=== PATIENT | female | born 1985 | race Caucasian/White ===

== ENCOUNTER 2019-03-15 19:23 | Emergency (ER) | payer BC, OTHER ==
[2019-03-15 19:44] VITALS: BP 112/70
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
--- NOTE | 2019-03-16 09:48 | UC ---
- Progress Note Progress Note: Final radiologist reading for x-rays from March 15, 2019 comes back with the left wrist is no fracture in the left elbow there is a joint effusion present. Provider interpretation of same date was the same and patient is being treated for an elbow fracture and following up with orthopedics therefore there is no discrepancy and no change in treatment at this time. Course/Dx - Diagnoses Provider Diagnoses: Left radial head fracture, Left wrist sprain Discharge - Sign-Out/Discharge Documenting (check all that apply): Patient Departure All imaging exams completed and their final reports reviewed: Yes - Discharge Plan Condition: Stable Disposition: HOME Patient Education Materials: Elbow Fracture (ED), Wrist Sprain (ED) Referrals: Joshua Irvin MD [Medical Doctor] - As Soon As Possible Additional Instructions: the offical xr reports are pending I suspect a left radial head fracture You are tender in an area on your wrist which suggests a scaphoid fracture although I did not see one on xr thub spica splint and sling - Billing Disposition and Condition Condition: STABLE Disposition: Home
== END 2019-03-15 21:01 | disposition home or self-care (01) ==
LOC: UCCORT 19:23
DX: S52.122A Displaced fracture of head of left radius, initial encounter for closed fracture (principal); S63.502A Unspecified sprain of left wrist, initial encounter; W19.XXXA Unspecified fall, initial encounter; Y93.55 Activity, bike riding; Y92.9 Unspecified place or not applicable; M25.422 Effusion, left elbow
CPT/HCPCS: 99201; G0463